=== PATIENT | male | born 1985 | race American Indian/Alaskan Native ===

== ENCOUNTER 2016-11-30 22:47 | Emergency (ER) | payer SELFPAY | END 2016-11-30 23:38 | disposition short-term general hospital (02) | LOC: ED 22:47 | DX: S01.81XA Laceration without foreign body of other part of head, initial encounter (principal); X58.XXXA Exposure to other specified factors, initial encounter; Y93.9 Activity, unspecified; Y99.9 Unspecified external cause status; Y92.9 Unspecified place or not applicable; Z53.21 Procedure and treatment not carried out due to patient leaving prior to being seen by health care provider ==

== ENCOUNTER 2017-11-03 08:55 | Emergency (ER) | payer OTHER, MEDICAID ==
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
--- NOTE | 2017-11-03 10:33 | XRay Report ---
Cervical spine 3 views: History: Neck injury. Pain. Findings: Normal height of vertebral bodies and intervertebral disc. Normal articular surfaces. No fracture. Normal prevertebral soft tissue. Impression: Essentially negative cervical spine.
--- NOTE | 2017-11-03 10:34 | XRay Report ---
Lumbar spine 3 views: History: Neck pain injury. Findings: Normal height of vertebral bodies and intervertebral disc. Normal articular surfaces. No fracture. No soft tissue calcification. Impression: No bony or articular abnormality lumbar spine.
[2017-11-03 12:14] VITALS: BP 112/79
== END 2017-11-03 12:18 | disposition home or self-care (01) ==
LOC: ED 08:55
DX: S16.1XXA Strain of muscle, fascia and tendon at neck level, initial encounter (principal); S39.012A Strain of muscle, fascia and tendon of lower back, initial encounter; V49.49XA Driver injured in collision with other motor vehicles in traffic accident, initial encounter; Y93.89 Activity, other specified; Y92.89 Other specified places as the place of occurrence of the external cause; Y99.8 Other external cause status
CPT/HCPCS: 72040; 72100

== ENCOUNTER 2019-05-29 11:36 | Emergency (ER) | payer MEDICAID ==
[2019-05-29 12:12] VITALS: BP 109/70
--- NOTE | 2019-05-29 12:13 | Event Note ---
ED Screening Note ED Screening Note: pt presents with CP for a week on the right side states he had a bite to the right side of his chest, states he had a tick a week ago (+) nausea no emesis mild SOB PMHx asthma, heart murmur +drinker +tobacco former marijuana states he stopped three days ago This initial assessment/diagnostic orders/clinical plan/treatment(s) is/are subject to change based on patients health status, clinical progression and re- assessment by fellow clinical providers in the ED. Further treatment and workup at subsequent clinical providers discretion. Patient/guardian urged not to elope from the ED as their condition may be serious if not clinically assessed and managed. Initial orders include: CXR, EKG, labs
--- NOTE | 2019-05-29 12:44 | XRay Report ---
CHEST 2 VIEWS INDICATION / CLINICAL INFORMATION: Chest pain. COMPARISON: None available. FINDINGS: SUPPORT DEVICES: None. HEART / MEDIASTINUM: No significant abnormality. LUNGS / PLEURA: No significant pulmonary or pleural abnormality. No pneumothorax. ADDITIONAL FINDINGS: No significant additional findings. IMPRESSION: 1. No acute findings. Signer Name: Aristeo Márquez MD Signed: 05/29/2019 12:40 PM Workstation Name: [id number]
[2019-05-29 13:16] LABS: Basophils % (Auto) 0.5 % (0.0-1.8); Hematocrit 41.6 % (35.5-45.6); Hemoglobin 14.1 gm/dl (11.8-15.2); Lymphocytes # (Auto) 0.9 K/mm3 (1.2-5.4); Lymphocytes % (Auto) 15.9 % (13.4-35.0); Mean Corpuscular HGB Conc 34 % (32-34); Mean Corpuscular Volume 95 fl (84-94); Monocytes # (Auto) 0.7 K/mm3 (0.0-0.8); Monocytes % (Auto) 12.7 % (0.0-7.3); Platelet Count 131 K/mm3 (140-440); Red Blood Count 4.38 M/mm3 (3.65-5.03); Red Cell Distribution Width 13.1 % (13.2-15.2)
[2019-05-29 13:21] LABS: BUN/Creatinine Ratio 12; Blood Urea Nitrogen 11 mg/dL (9-20); Calcium 9.1 mg/dL (8.4-10.2); Hemolysis Index 5
--- NOTE | 2019-05-29 13:42 | Emergency Department Report ---
ED Chest Pain HPI - General Chief Complaint: Chest Pain Stated Complaint: CHEST PAIN/WEAK Time Seen by Provider: 05/29/19 12:09 Source: patient Mode of arrival: Ambulatory Limitations: No Limitations - History of Present Illness Initial Comments: Patient is a 33-year-old male with no significant past medical history who is presenting with chest discomfort shortness of breath. Patient states a week ago he had a tick bite on the right chest. This area does continue to be red and painful. Patient also has some swelling to the right axilla. Patient states he felt weak and fatigued with possible fevers and chills subjectively. Patient states these felt so weak and felt as though he may pass out and also is having some left-sided chest discomfort with radiation to bilateral shoulders shortness of breath. This is occurring at random. Patient feels as though he may have some anxiety issues as well. - Related Data Previous Rx's Medication Instructions Recorded Last Taken Type Metaxalone [Skelaxin] 800 mg PO TID #30 tablet 11/03/17 Unknown Rx Naproxen [Naprosyn] 500 mg PO BID #14 tablet 11/03/17 Unknown Rx DOXYCYCLINE Hyclate [Vibramycin 100 mg PO Q12HR #14 capsule 05/29/19 Unknown Rx CAP] Ibuprofen [Motrin 800 MG tab] 800 mg PO Q8HR PRN #10 tablet 05/29/19 Unknown Rx Ondansetron [Zofran Odt] 4 mg PO Q8HR #10 tab.rapdis 05/29/19 Unknown Rx traMADol [Ultram] 50 mg PO Q6HR PRN #12 tablet 05/29/19 Unknown Rx Allergies Allergy/AdvReac Type Severity Reaction Status Date / Time No Known Allergies Allergy Unverified 05/29/19 11:41 Heart Score - HEART Score History: Slightly suspicious EKG: Non-specific Age: < 45 Risk factors: No known risk factors Troponin: < normal limit HEART Score: 1 ED Review of Systems ROS: Stated complaint: CHEST PAIN/WEAK Other details as noted in HPI Comment: All other systems reviewed and negative ED Past Medical Hx - Past Medical History Previous Medical History?: Yes Hx Seizures: Yes Hx Asthma: Yes Additional medical history: Heart murmur - Surgical History Past Surgical History?: Yes Additional Surgical History: hernia repair - Social History Smoking Status: Current Every Day Smoker Substance Use Type: Alcohol - Medications Home Medications: Home Medications Medication Instructions Recorded Confirmed Last Taken Type Metaxalone [Skelaxin] 800 mg PO TID #30 tablet 11/03/17 Unknown Rx Naproxen [Naprosyn] 500 mg PO BID #14 tablet 11/03/17 Unknown Rx DOXYCYCLINE Hyclate [Vibramycin 100 mg PO Q12HR #14 capsule 05/29/19 Unknown Rx CAP] Ibuprofen [Motrin 800 MG tab] 800 mg PO Q8HR PRN #10 tablet 05/29/19 Unknown Rx Ondansetron [Zofran Odt] 4 mg PO Q8HR #10 tab.rapdis 05/29/19 Unknown Rx traMADol [Ultram] 50 mg PO Q6HR PRN #12 tablet 05/29/19 Unknown Rx ED Physical Exam - General Limitations: No Limitations General appearance: alert, in no apparent distress - Head Head exam: Present: atraumatic, normocephalic - Eye Eye exam: Present: normal appearance - ENT ENT exam: Present: mucous membranes moist - Neck Neck exam: Present: normal inspection - Respiratory Respiratory exam: Present: normal lung sounds bilaterally. Absent: respiratory distress, wheezes, rales, rhonchi - Cardiovascular Cardiovascular Exam: Present: normal rhythm, bradycardia, normal heart sounds. Absent: systolic murmur, diastolic murmur, rubs, gallop - GI/Abdominal GI/Abdominal exam: Present: soft, normal bowel sounds. Absent: distended, tenderness, guarding, rebound - Rectal Rectal exam: Present: deferred - Extremities Exam Extremities exam: Present: normal inspection - Back Exam Back exam: Present: normal inspection - Neurological Exam Neurological exam: Present: alert, oriented X3 - Psychiatric Psychiatric exam: Present: normal affect, normal mood - Skin Skin exam: Present: warm, dry, intact, normal color, erythema (the area of erythema induration in the right chest wall just below the nipple line. Patient also has axillary lymphadenopathy present on palpation.). Absent: rash ED Course Vital Signs 05/29/19 12:09 Temperature 98.5 F Pulse Rate 58 L Respiratory 18 Rate Blood Pressure 109/70 O2 Sat by Pulse 98 Oximetry ED Medical Decision Making - Lab Data Result diagrams: 05/29/19 12:32 05/29/19 12:32 Lab Results 05/29/19 05/29/19 Range/Units 12:32 12:32 WBC 5.6 (4.5-11.0) K/mm3 RBC 4.38 (3.65-5.03) M/mm3 Hgb 14.1 (11.8-15.2) gm/dl Hct 41.6 (35.5-45.6) % MCV 95 H (84-94) fl MCH 32 (28-32) pg MCHC 34 (32-34) % RDW 13.1 L (13.2-15.2) % Plt Count 131 L (140-440) K/mm3 Lymph % (Auto) 15.9 (13.4-35.0) % Wells % (Auto) 12.7 H (0.0-7.3) % Eos % (Auto) 0.0 (0.0-4.3) % Baso % (Auto) 0.5 (0.0-1.8) % Lymph # 0.9 L (1.2-5.4) K/mm3 Wells # 0.7 (0.0-0.8) K/mm3 Eos # 0.0 (0.0-0.4) K/mm3 Baso # 0.0 (0.0-0.1) K/mm3 Seg Neutrophils % 70.9 H (40.0-70.0) % Seg Neutrophils # 3.9 (1.8-7.7) K/mm3 Sodium 134 L (137-145) mmol/L Potassium 3.8 (3.6-5.0) mmol/L Chloride 95.2 L (98-107) mmol/L Carbon Dioxide 27 (22-30) mmol/L Anion Gap 16 mmol/L BUN 11 (9-20) mg/dL Creatinine 0.9 (0.8-1.5) mg/dL Estimated GFR > 60 ml/min BUN/Creatinine Ratio 12 % Glucose 99 (75-100) mg/dL Calcium 9.1 (8.4-10.2) mg/dL Troponin T < 0.010 (0.00-0.029) ng/mL - EKG Data -: EKG Interpreted by Nv EKG shows normal: sinus rhythm, axis, intervals, QRS complexes, ST-T waves Rate: bradycardia - EKG Data Interpretation: other (no Stemi present) - Medical Decision Making Patient appears to have an infected insect bite on the right chest wall. Patient's left-sided chest pain likely anxiety related. Patient also could also be having some fevers intermittently over the last week. Patient be started on antibiotics and will be given medications for symptomatic relief. Patient given cardiology follow-up as well. Patient discharged home. Critical care attestation.: If time is entered above; I have spent that time in minutes in the direct care of this critically ill patient, excluding procedure time. ED Disposition Clinical Impression: Lymphadenopathy, Atypical chest pain Infected insect bite Qualifiers: Encounter type: initial encounter Qualified Code(s): W57.XXXA - Bitten or stung by nonvenomous insect and other nonvenomous arthropods, initial encounter Disposition: - TO HOME OR SELFCARE Is pt being admited?: No Does the pt Need Aspirin: No Condition: Stable Instructions: Chest Pain (ED), Cellulitis (ED) Referrals: CELIA COULTERKORBEL MD LYDIA [Primary Care Provider] - 3-5 Days WANG SOLARES MD [Staff Physician] - 3-5 Days Time of Disposition: 13:44
== END 2019-05-29 13:57 | disposition home or self-care (01) ==
LOC: ED 11:36
DX: S20.361A Insect bite (nonvenomous) of right front wall of thorax, initial encounter (principal); R59.0 Localized enlarged lymph nodes; F41.9 Anxiety disorder, unspecified; J45.909 Unspecified asthma, uncomplicated; F17.200 Nicotine dependence, unspecified, uncomplicated; Z98.890 Other specified postprocedural states; Z79.1 Long term (current) use of non-steroidal anti-inflammatories (NSAID); Z79.899 Other long term (current) drug therapy; W57.XXXA Bitten or stung by nonvenomous insect and other nonvenomous arthropods, initial encounter; Y93.89 Activity, other specified; Y92.89 Other specified places as the place of occurrence of the external cause; Y99.8 Other external cause status
CPT/HCPCS: 36415; 71046; 80048; 84484; 85025; 93005; 93010; 99284